=== PATIENT | male | born 2000 | race Caucasian/White ===

== ENCOUNTER 2021-09-19 13:33 | Emergency (ER) | payer BC ==
[2021-09-19 14:10] LABS: HEMOGLOBIN 16.2 gm/dl (14.0-17.5); RED BLOOD COUNT 5.29 M/UL (4.20-5.50); WHITE BLOOD COUNT 5.4 K/UL (4.5-11.0)
[2021-09-19 14:35] LABS: BUN/CREATININE RATIO 14 (0-10)
== END 2021-09-19 16:34 | disposition home or self-care (01) ==
LOC: ER1 13:33
PROVIDERS: Nurse Practitioner
DX: R07.89 Other chest pain (principal); E66.9 Obesity, unspecified; Z20.822 Contact with and (suspected) exposure to COVID-19
CPT/HCPCS: 71045; 80053; 81001; 82550; 82553; 83874; 84484; 85025; 93005; 99285; U0002